=== PATIENT | female | born 1975 | race Caucasian/White ===

== ENCOUNTER 2017-12-08 17:28 | Emergency (ER) | payer BC ==
--- OUTSIDE RECORDS SUMMARY | 2017-12-08 17:29 | XMS REPORT | Clinical Summary ---
:1975 Author Organization [facility] Address [address] [place] [address] Care Team Providers Name Role Phone Asked, No Pcp Primary Care Provider Unavailable Allergies Active Allergy Reactions Severity Noted Date Comments Amoxicillin-Pot 11/27/2015 Clavulanate Avocado Oil 11/27/2015 Caffeine 11/27/2015 pt was dx psvt cannot have any medication containing this ingredients Cefuroxime Sodium 11/27/2015 Cetirizine Hcl 11/27/2015 Ciprofloxacin 11/27/2015 [place] 11/27/2015 Codeine Shortness Of Breath High 11/27/2015 Meperidine Shortness Of Breath High 11/27/2015 Doxycycline 11/27/2015 Erythromycin 11/27/2015 Kiwi 11/27/2015 Latex 11/27/2015 Melon 11/27/2015 Minocycline 11/27/2015 Ofloxacin 11/27/2015 Other Other (See Comments) 11/27/2015 antihistamines, pt was dx psvt cannot have any medication containing this ingredients Steroids pt was dx psvt cannot have any medication containing this ingredients Oxymetazoline Hcl 11/27/2015 pt was dx psvt cannot have any medication containing this medication Penicillins 11/27/2015 Amy Oil Anaphylaxis High 11/27/2015 Shellfish Containing Swelling 11/27/2015 Products Squash 11/27/2015 Sulfacetamide Sodium 11/27/2015 Sulfamethoxazole-Trimet 11/27/2015 hoprim Terfenadine 11/27/2015 Tree Nuts Anaphylaxis High 11/27/2015 Current Medications Prescription Sig. Disp. Refills Start Date End Date Status clonAZEPAM (KlonoPIN) 2 MG TK 1/ TO 1 T PO 0 11/15/2015 Active tablet ONCE A DAY Active Problems Problem Noted Date SVT (supraventricular tachycardia) 11/27/2015 Anxiety 11/27/2015 Depression 11/27/2015 Syncope 11/27/2015 Cardiac dysrhythmia, unspecified 11/27/2015 Family History Medical History Relation Name Comments Cancer Father Diabetes Father Heart disease Father Asthma Mother Heart disease Mother Relation Name Status Comments Father Mother Social History Tobacco Use Types Packs/Day Years Used Date Never Smoker Alcohol Use Drinks/Week oz/Week Comments No Sex Assigned at Date Recorded Not on file Last Filed Vital Signs Not on file Plan of Treatment Not on file Implants Implanted Type 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
[2017-12-08] MEDS ORDERED: NA CHLORIDE 0.9% 1,000 ML ONE (18:52)
[2017-12-08] MEDS ORDERED: ONDANSETRON 4 MG/2 ML VIAL ONE (18:52)
[2017-12-08] MEDS ORDERED: CYCLOBENZAPRINE 10 MG TAB ONE (18:52)
[2017-12-08] MEDS ORDERED: FENTANYL CITR 100 MCG/2 ML ONE ×2 (18:58→20:11)
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
[2017-12-08 21:57] LABS: Urine Blood NEGATIVE (NEG); Urine Glucose NEGATIVE (NEG); Urine Protein NEGATIVE (NEG); Urine Specific Gravity >1.030 (1.005-1.030)
[2017-12-08 21:57] LABS: Urine Blood NEGATIVE (NEG); Urine Glucose NEGATIVE (NEG); Urine Protein NEGATIVE (NEG); Urine Specific Gravity >1.030 (1.005-1.030)
[2017-12-08 21:58] LABS: Urine Specific Gravity >1.030 (1.005-1.030)
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
[2017-12-08 22:58] VITALS: TEMP 97.9
[2017-12-08 23:04] VITALS: BP 121/72; O2SAT 100
== END 2017-12-08 22:51 | disposition home or self-care (01) ==
LOC: ER 17:28
DX: S23.3XXA Sprain of ligaments of thoracic spine, initial encounter (principal); Y93.I9 Activity, other involving external motion; Y93.89 Activity, other specified; Y92.89 Other specified places as the place of occurrence of the external cause; Z88.0 Allergy status to penicillin; Z88.1 Allergy status to other antibiotic agents; Z88.2 Allergy status to sulfonamides; Z88.3 Allergy status to other anti-infective agents; Z88.5 Allergy status to narcotic agent; Z88.8 Allergy status to other drugs, medicaments and biological substances; F41.9 Anxiety disorder, unspecified; F32.9 Major depressive disorder, single episode, unspecified
CPT/HCPCS: 72128; 81003; 81025; 99284; J2405; J3010; J7030

== ENCOUNTER 2018-03-18 22:56 | Emergency (ER) | payer BC ==
--- OUTSIDE RECORDS SUMMARY | 2018-03-18 22:58 | XMS REPORT | Clinical Summary ---
:1975 Author Organization [facility] Address [address] [place] [address] Care Team Providers Name Role Phone Asked, No Pcp Primary Care Provider Unavailable Allergies Active Allergy Reactions Severity Noted Date Comments Amoxicillin-Pot 11/27/2015 Clavulanate Avocado Oil 11/27/2015 Caffeine 11/27/2015 pt was dx psvt cannot have any medication containing this ingredients Cantaloupe 03/01/2018 Cefuroxime Sodium 11/27/2015 Cetirizine Hcl 11/27/2015 Ciprofloxacin 11/27/2015 Arcadia 11/27/2015 Codeine Shortness Of Breath High 11/27/2015 Meperidine Shortness Of Breath High 11/27/2015 Doxycycline 11/27/2015 Erythromycin 11/27/2015 Kiwi 11/27/2015 Latex 11/27/2015 Melon 11/27/2015 Minocycline 11/27/2015 Ofloxacin 11/27/2015 Other Other (See Comments) 11/27/2015 antihistamines, pt was dx psvt cannot have any medication containing this ingredients Steroids pt was dx psvt cannot have any medication containing this ingredients CAT Scan contrast - "arm swells" Egg plant - "swells" Oxymetazoline Hcl 11/27/2015 pt was dx psvt cannot have any medication containing this medication Penicillins 11/27/2015 Amy Oil Anaphylaxis High 11/27/2015 Shellfish Containing Swelling 11/27/2015 Products Shellfish Derived 03/01/2018 Squash 11/27/2015 Sulfacetamide Sodium 11/27/2015 Sulfamethoxazole-Trimet 11/27/2015 hoprim Terfenadine 11/27/2015 Tree Nuts Anaphylaxis High 11/27/2015 Specially almonds Doxycycline Hyclate 03/01/2018 Respiratory distress Cetirizine Anaphylaxis High 03/01/2018 Current Medications Prescription Sig. Disp. Refills Start Date End Date Status clonAZEPAM (KlonoPIN) TAKE 1 TO 2 0 11/15/2015 Active 2 MG tablet TABLETS (2 MG - 4 MG) ORALLY DAILY traMADol (ULTRAM) 50 TAKE 1 TABLET 2 02/15/2018 Active mg tablet BY MOUTH EVERY 4 - 6 HOURS cholecalciferol, Take 1 tablet Active vitamin D3, (VITAMIN by mouth D3) 5,000 unit tablet daily. SUMAtriptan (IMITREX) TAKE 1 TABLET 5 02/16/2018 Active 50 MG tablet BY MOUTH 2 TIMES DAILY NEEDED FOR MIGRAINE diphenhydrAMINE Take 12.5 mg Active (BENADRYL) 25 mg by mouth capsule every 6 (six) hours as needed for itching or allergies. omeprazole (PriLOSEC) Take 40 mg by Active 40 MG capsule mouth 2 (two) times a day. metoprolol tartrate Take 25-100 Active (LOPRESSOR) 25 mg mg by mouth 2 tablet (two) times a day as needed (if PSVT is up). albuterol (PROAIR Inhale 2 Active HFA,PROVENTIL puffs every 6 HFA,VENTOLIN HFA) 90 (six) hours mcg/actuation inhaler as needed for wheezing (Asthma attack). docusate sodium Take 1 30 capsule 0 03/08/2018 Active (COLACE) 100 MG capsule (100 8 capsule mg total) by mouth 2 (two) times a day for 30 doses. methocarbamol Take 1 tablet 40 tablet 3 03/08/2018 Active (ROBAXIN-750) 750 MG (750 mg 8 tablet total) by mouth every 6 (six) hours for 40 doses. pantoprazole Take 1 tablet 15 tablet 0 03/08/2018 Active (PROTONIX) 20 MG EC (20 mg total) 8 tablet by mouth daily for 30 days. metoprolol succinate Take 100 mg Discontinued XL (TOPROL-XL) 100 mg by mouth 8 24 hr tablet daily. diazePAM (VALIUM) 5 Take 1 tablet 20 tablet 1 03/08/2018 MG tablet (5 mg total) 8 by mouth every 6 (six) hours as needed for anxiety or muscle spasms for up to 7 days. Active Problems Problem Noted Date Radiculopathy of cervical spine 03/05/2018 SVT (supraventricular tachycardia) (HCC) 11/27/2015 Anxiety 11/27/2015 Depression 11/27/2015 Syncope 11/27/2015 Cardiac dysrhythmia, unspecified 11/27/2015 Encounters Date Type Specialty Care Team Description 03/07/2018 Procedure Pass General Internal Medicine 03/07/2018 Procedure Pass General Internal Medicine 03/06/2018 Anesthesia Event General Surgery Lorelei Murray MD 03/06/2018 Procedure Pass General Surgery 03/06/2018 Surgery General Surgery Genaro Mayo ANTERIOR CERVICAL RE-EXPLORATION AND REMOVAL OF C5-C7 PLATE, REDO OF C6-C7 ANTERIOR CERVICAL DISCECTOMY AND FUSION 03/05/2018 - Hospital Encounter General Internal Genaro Mayo, Cervical spinal 03/09/2018 Medicine stenosis Rainer Hill MD 03/05/2018 Documentation General Surgery Stephie Hurtado RN 03/05/2018 Procedure Pass General Surgery 03/05/2018 Surgery General Surgery Genaro Mayo ANTERIOR CERVICAL RE EXPLORATION 03/01/2018 Anesthesia Event General Surgery José Miguel Mccarthy, ISABELLA 02/27/2018 Hospital Encounter Genaro Wright Cervical stenosis (uterine cervix) 02/27/2018 Transcribe Orders Genaro Wright, Cervical stenosis (uterine cervix) (Primary Dx) 02/01/2018 Hospital Encounter Genaro Wright, Spinal stenosis in cervical region 01/18/2018 Transcribe Orders Access Genaro Mayo, Spinal stenosis in cervical region (Primary Dx) after 03/17/2017 Family History Medical History Relation Name Comments Cancer Father Diabetes Father Heart disease Father Asthma Mother Heart disease Mother Relation Name Status Comments Father Mother Social History Tobacco Use Types Packs/Day Years Used Date Never Smoker Smokeless Tobacco: Never Used Alcohol Use Drinks/Week oz/Week Comments No Sex Assigned at Date Recorded Not on file Last Filed Vital Signs Vital Sign Reading Time Taken Blood Pressure 128/70 03/09/2018 7:08 AM CDT Pulse 70 03/09/2018 10:21 AM CDT Temperature 36.6 C (97.9 F) 03/09/2018 7:08 AM CDT Respiratory Rate 18 03/09/2018 10:21 AM CDT Oxygen Saturation 99% 03/09/2018 10:21 AM CDT Inhaled Oxygen Concentration - - Weight 88.6 kg (195 lb 6 oz) 03/05/2018 11:37 AM CDT Height 172.7 cm (5' 8") 03/05/2018 11:37 AM CDT Body Mass Index 29.71 03/05/2018 11:37 AM CDT Plan of Treatment Health Maintenance Due Date Last Done Comments CERVICAL CANCER SCREENING 1996 INFLUENZA VACCINE 12/27/2017 Implants Implanted Type Area Account Analyst Device Expiration Model / Serial Identifier Date / Lot System Reveal Linq W/Monitors - [id number] Cardiovascula [employer] 2016 LINQSYS / Implanted: Qty: 1 on 11/27/2015 by Alfredo Hays Jr., MD r Implants CARDIAC RHYTHM / DISEASE MGMT Spacer Convexity Tricrtcl 9mm - [id number] Human Tissue Anterior: MUSCULOSKELETAL 03/14/2020 [id number] / Implanted: Qty: 1 on 03/06/2018 by Genaro Mayo MD Implants Spine [employer] [facility] [facility] [id number] Procedures Procedure Name Priority Date/Time Associated Comments Diagnosis ESTIMATED GFR Routine 03/09/2018 6:00 Results for this AM CDT procedure are in the results section. CBC HEMOGRAM Routine 03/09/2018 6:00 Results for this AM CDT procedure are in the results section. BASIC METABOLIC PANEL Routine 03/09/2018 6:00 Results for this AM CDT procedure are in the results section. FL MODIFIED BARIUM Routine 03/08/2018 11:14 Results for this SWALLOW AM CDT procedure are in the results section. ESTIMATED GFR STAT 03/08/2018 7:42 Results for this AM CDT procedure are in the results section. BASIC METABOLIC PANEL STAT 03/08/2018 7:42 Results for this AM CDT procedure are in the results section. ESTIMATED GFR Routine 03/08/2018 5:00 Results for this AM CDT procedure are in the results section. CBC HEMOGRAM Routine 03/08/2018 5:00 Results for this AM CDT procedure are in the results section. BASIC METABOLIC PANEL Routine 03/08/2018 5:00 Results for this AM CDT procedure are in the results section. CT LUMBAR SPINE WO STAT 03/07/2018 7:04 Results for this CONTRAST PM CDT procedure are in the results section. MRI LUMBAR SPINE WO Routine 03/07/2018 2:14 Results for this CONTRAST PM CDT procedure are in the results section. MRI THORACIC SPINE WO Routine 03/07/2018 1:43 Results for this CONTRAST PM CDT procedure are in the results section. ESTIMATED GFR Routine 03/07/2018 3:50 Results for this AM CDT procedure are in the results section. CBC HEMOGRAM Routine 03/07/2018 3:50 Results for this AM CDT procedure are in the results section. BASIC METABOLIC PANEL Routine 03/07/2018 3:50 Results for this AM CDT procedure are in the results section. CT CERVICAL SPINE WO STAT 03/06/2018 4:45 Results for this CONTRAST PM CDT procedure are in the results section. OR FL > 1 HOUR Routine 03/06/2018 12:28 Results for this PM CDT procedure are in the results section. NJ AN ELECTIVE Routine 03/06/2018 10:28 ENDOTRACHEAL AIRWAY AM CDT Procedure Note - Jerardo Camacho CRNA - 03/06/2018 10:28 AM CDT Airway Date/Time: 03/06/2018 9:51 AM Performed by: JERARDO CAMACHO Authorized by: LORELEI MURRAY Location: OR Urgency: Elective Difficult Airway: No Anesthesiologist: LORELEI MURRAY Resident/FILTER TIP INSPECTOR/AA: JERARDO CAMACHO Performed by: resident/FILTER TIP INSPECTOR/AA Preoxygenated with 100% O2: Yes C-spine Precautions Maintained Throughout: Yes Mask Ventilation: Easy mask Final Airway Type: Endotracheal airway Final Endotracheal Airway: ETT Cuffed: Yes Technique Used: Video laryngoscopy Devices/Methods Used in Placement: Intubating stylet Insertion Site: Oral Blade Type: Howard Laryngoscope Blade/Videolaryngoscope Blade Size: 3 ETT Size (mm): 7.0 Cuff at minimum occlusion pressure: Yes Measured from: Lips ETT to Lips (cm): 22 Placement Verified by: CO2 detection, direct visualization and equal breath sounds Laryngoscopic view: Grade I - full view of glottis Rapid Sequence Induction (RSI): No Modified RSI: No Number of Attempts at Approach: 1 Used a glidescope #[address] Junior request. Atraumatic intubation. All oral structures intact and unchanged. PROTHROMBIN TIME WITH INR Routine 03/06/2018 4:40 AM CDT MAGNESIUM LEVEL Routine 03/06/2018 4:40 AM CDT ESTIMATED GFR Routine 03/05/2018 8:49 PM CDT COMPREHENSIVE METABOLIC Routine 03/05/2018 8:49 PM CDT Results for this PANEL procedure are in the results section. OR FL > 1 HOUR Routine 03/05/2018 5:10 PM CDT NJ AN ELECTIVE ENDOTRACHEAL Routine 03/05/2018 2:40 PM CDT AIRWAY Procedure Note - Nguyễn Hernandez Jr., FILTER TIP INSPECTOR - 03/05/2018 2:40 PM CDT Airway Date/Time: 03/05/2018 2:13 PM Performed by: NGUYỄN HERNANDEZ JR. Authorized by: LORELEI MURRAY Location: OR Urgency: Elective Difficult Airway: No Anesthesiologist: LORELEI MURRAY Resident/FILTER TIP INSPECTOR/AA: NGUYỄN HERNANDEZ JR. Performed by: resident/FILTER TIP INSPECTOR/AA Preoxygenated with 100% O2: Yes C-spine Precautions Maintained Throughout: Yes Mask Ventilation: Easy mask Final Airway Type: Endotracheal airway Final Endotracheal Airway: ETT Cuffed: Yes Technique Used: Video laryngoscopy Devices/Methods Used in Placement: Intubating stylet Insertion Site: Oral Laryngoscope Blade/Videolaryngoscope Blade Size: 3 ETT Size (mm): 7.0 (EMG tube) Cuff at minimum occlusion pressure: Yes Measured from: Lips ETT to Lips (cm): 21 Placement Verified by: CO2 detection, direct visualization and equal breath sounds Laryngoscopic view: Grade I - full view of glottis Rapid Sequence Induction (RSI): No Modified RSI: No Number of Attempts at Approach: 1 Suctioned; Atraumatic; +ETCO2 URINALYSIS SCREEN AND Timed 03/05/2018 2:20 PM Cervical spinal Results for this MICROSCOPY, WITH CDT stenosis procedure are in REFLEX TO CULTURE the results section. URINE CULTURE Timed 03/05/2018 2:20 PM Results for this CDT procedure are in the results section. TYPE AND SCREEN STAT 03/05/2018 12:20 PM Results for this CDT procedure are in the results section. POC GLUCOSE Routine 03/05/2018 12:10 PM Results for this CDT procedure are in the results section. XR CERVICAL SPINE AP Routine 02/27/2018 2:10 PM Cervical stenosis Results for this LATERAL FLEXION AND CDT (uterine cervix) procedure are in EXTENSION the results section. CT CERVICAL SPINE WO Routine 02/01/2018 1:28 PM Spinal stenosis in Results for this CONTRAST CDT cervical region procedure are in the results section. after 03/17/2017 Results Estimated GFR (03/09/2018 6:00 AM)Only the most recent of5 resultswithin the time period is included. Estimated GFR >=90 mL/min/1.73 m2 [facility] DEPARTMENT OF Comment: PATHOLOGY AND GENOMIC CatergoryUnitsInterpretation MEDICINE G1 >=90 Normal or high G2 60-89Mildly decreased [id number] to moderately decreased [id number] to severely decreased G4 15-29Severely decreased G5 <15Kidney failure The eGFR was calculated using the Chronic Kidney Disease Epidemiology Collaboration (CKD-EPI) equation. Interpretation is based on recommendations of the National Kidney Foundation-Kidney Disease Outcomes Quality Initiative (NKF-KDOQI) published in 2014. Specimen Plasma specimen Performing Organization Address City/State/Zipcode Phone Number [facility] DEPARTMENT OF PATHOLOGY [address] [place] [address] AND [employer] [facility] CBC hemogram (03/09/2018 6:00 AM)Only the most recent of3 resultswithin the time period is included. WBC 11.8 (H) 4.5 - 11.0 k/uL [facility] DEPARTMENT OF PATHOLOGY AND GENOMIC MEDICINE RBC 4.18 (L) 4.20 - 5.50 m/uL [facility] DEPARTMENT OF PATHOLOGY AND GENOMIC MEDICINE HGB 12.2 12.0 - 16.0 g/dL [facility] DEPARTMENT OF PATHOLOGY AND GENOMIC MEDICINE HCT 35.8 (L) 37.0 - 47.0 % [facility] DEPARTMENT OF PATHOLOGY AND GENOMIC MEDICINE MCV 85.6 82.0 - 100.0 fL [facility] DEPARTMENT OF PATHOLOGY AND GENOMIC MEDICINE MCH 29.2 27.0 - 34.0 pg [facility] DEPARTMENT OF PATHOLOGY AND GENOMIC MEDICINE MCHC 34.1 31.0 - 37.0 g/dL [facility] DEPARTMENT OF PATHOLOGY AND GENOMIC MEDICINE RDW - SD 37.3 37.0 - 55.0 fL [facility] DEPARTMENT OF PATHOLOGY AND GENOMIC MEDICINE MPV 10.7 6.9 - 11.0 fL [facility] DEPARTMENT OF PATHOLOGY AND GENOMIC MEDICINE Platelet count 256 150 - 400 K/uL [facility] DEPARTMENT OF PATHOLOGY AND [employer] [facility] Nucleated RBC 0.00 /100 WBC [facility] DEPARTMENT OF PATHOLOGY AND [employer] [facility] Specimen Blood Performing Organization Address City/[facility]/Zipcode Phone Number [facility] OF PATHOLOGY [id number] [place] [address] AND [employer] [facility] Basic metabolic panel (03/09/2018 6:00 AM)Only the most recent of4 resultswithin the time period is included. Sodium 140 135 - 148 mEq/L [facility] DEPARTMENT OF PATHOLOGY AND [employer] [facility] Potassium 3.8 3.5 - 5.0 mEq/L [facility] DEPARTMENT OF PATHOLOGY AND [employer] [facility] Chloride 103 98 - 112 mEq/L [facility] DEPARTMENT OF PATHOLOGY AND [employer] [facility] CO2 25 24 - 31 mEq/L [facility] DEPARTMENT OF PATHOLOGY AND [employer] [facility] Anion gap 12@ANIO 7 - 15 mEq/L [facility] DEPARTMENT OF PATHOLOGY AND [employer] [facility] BUN 14 6 - 20 mg/dL [facility] DEPARTMENT OF PATHOLOGY AND [employer] [facility] Creatinine 0.63 0.50 - 0.90 mg/dL [facility] DEPARTMENT OF PATHOLOGY AND [employer] [facility] Glucose 130 (H) 65 - 99 mg/dL [facility] DEPARTMENT OF PATHOLOGY AND [employer] [facility] Calcium 8.6 8.3 - 10.2 mg/dL [facility] DEPARTMENT OF PATHOLOGY AND [employer] [facility] Specimen Plasma specimen Performing Organization Address City/[facility] Phone Number [facility] PATHOLOGY [address] [place] [address] AND [employer] [facility] [place] Modified Barium Swallow (03/08/2018 11:14 AM) Narrative Performed At [facility] Examination:FL MODIFIED BARIUM SWALLOW Clinical history:"Aspirationknown or suspected" Comparison:There are no prior studies for comparison. Reference air kerma:12.27 mGy. Technique: The patient swallowed materials of varying consistencies mixed with barium contrast under real-time fluoroscopic visualization. Specifically, the patient consecutively swallowed material of thin consistency, then pudding consistency, then cracker with pudding consistency. All swallowing was without evidence of laryngeal penetration or of aspiration. Noted is the absence of normal epiglottic inversion. For further details, please refer to speech pathology records. IMPRESSION: All swallowing was without evidence of laryngeal penetration or of aspiration. Noted is the absence of normal epiglottic inversion. Thank you for allowing us to participate in the care of your patient. [id number] Procedure Note Hm Interface, Radiology Results Incoming - 03/08/2018 11:30 AM CDT Examination: FL MODIFIED BARIUM SWALLOW Clinical history: "Aspiration known or suspected" Comparison: There are no prior studies for comparison. Reference air kerma: 12.27 mGy. Technique: The patient swallowed materials of varying consistencies mixed with barium contrast under real-time fluoroscopic visualization. Specifically, the patient consecutively swallowed material of thin consistency , then pudding consistency, then cracker with pudding consistency. All swallowing was without evidence of laryngeal penetration or of aspiration. Noted is the absence of normal epiglottic inversion. For further details, please refer to speech pathology records. IMPRESSION: All swallowing was without evidence of laryngeal penetration or of aspiration. Noted is the absence of normal epiglottic inversion. Thank you for allowing us to participate in the care of your patient. [facility]-[id number] Performing Organization Address City/State/Zipcode Phone Number [facility] [address] [place] [address] CT Lumbar Spine Wo Contrast (03/07/2018 7:04 PM) Narrative Performed At EXAMINATION: CT LUMBAR SPINE WO CONTRAST [facility] CLINICAL HISTORY: L S-spine fusionfollow up, Left leg weakness COMPARISON:Lumbar MRI 03/07/2018 TECHNIQUE: Noncontrast enhanced imaging through the lumbar spine was performed with coronal and sagittal reconstructed images. CT scans are performed using radiation dose reduction techniques (iterative reconstruction and/or automated exposure control). Technical factors are evaluated and adjusted to ensure appropriate moderation of exposure. Automated dose management technology is applied to adjust radiation exposure while achieving a diagnostic quality image. FINDINGS: There are surgical changes related to interbody fusion at L4-L5, with bony incorporation across the fusion. In addition, there are surgical changes related to a right L4-L5 facetectomy and foraminotomy. There are also surgical changes related to left L4-L5 facetectomy, and presumably a prior foraminotomy. In the region of the left L4-L5 foramen, there appears to be ill-defined heterotopic ossification which fuses the inferior aspect of the right L4 vertebral body with the L5 posterior elements/pars interarticularis.This appears to result in impingement of both the exiting L4 nerve root as well as the descending L5 nerve root in the lateral recess. There are no acute fractures. No acute soft tissue abnormality. There are degenerative changes most conspicuously present at L5-S1 resulting in mild bilateral foraminal stenosis. IMPRESSION: Surgical changes as detailed above. 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 This results in left L4-L5 foraminal stenosis and narrowing of the left lateral recess, with impingement of both the exiting L4 nerve roots and the descending L5 nerve root in the lateral recess. Correlate for left L4 and/or L5 radiculopathy. [facility]-[id number] Procedure Note Hm [facility], Radiology Results Incoming - 03/07/2018 7:48 PM CDT EXAMINATION: CT LUMBAR SPINE WO CONTRAST CLINICAL HISTORY: L S-spine fusion follow up, Left leg weakness COMPARISON: Lumbar MRI 03/07/2018 TECHNIQUE: Noncontrast enhanced imaging through the lumbar spine was performed with coronal and sagittal reconstructed images. CT scans are performed using radiation dose reduction techniques (iterative reconstruction and/or automated exposure control). Technical factors are evaluated and adjusted to ensure appropriate moderation of exposure. Automated dose management technology is applied to adjust radiation exposure while achieving a diagnostic quality image. FINDINGS: There are surgical changes related to interbody fusion at L4-L5, with bony incorporation across the fusion. In addition, there are surgical changes related to a right L4-L5 facetectomy and foraminotomy. There are also surgical changes related to left L4-L5 facetectomy, and presumably a prior foraminotomy. In the region of the left L4-L5 foramen, there appears to be ill-defined heterotopic ossification which fuses the inferior aspect of the right L4 vertebral body with the L5 posterior elements/pars interarticularis. This appears to result in impingement of both the exiting L4 nerve root as well as the descending L5 nerve root in the lateral recess. There are no acute fractures. No acute soft tissue abnormality. There are degenerative changes most conspicuously present at L5-S1 resulting in mild bilateral foraminal stenosis. IMPRESSION: Surgical changes as detailed above. 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 This results in left L4-L5 foraminal stenosis and narrowing of the left lateral recess, with impingement of both the exiting L4 nerve roots and the descending L5 nerve root in the lateral recess. Correlate for left L4 and/or L5 radiculopathy. [facility]-[id number] Performing Organization Address City/State/Zipcode Phone Number [facility] [address] [place] [address] MRI Lumbar Spine Wo Contrast (03/07/2018 2:14 PM) Narrative Performed At EXAMINATION: MRI LUMBAR SPINE WO CONTRAST [facility] CLINICAL HISTORY: LLE Weakness Technique: Routine unenhanced MRI of the lumbar spine. Comparison: None. Findings: For the purposes of this dictation, the last well-defined interspace is called L5-S1. There is anatomic alignment of the lumbar spine.Mild levocurvature of the lumbar spine. Lumbar vertebral body heights are maintained. There is artifact from L4-L5 disc spacer which appears to protrude into the thecal sac and sagittal sequence; however likely artifactual as not correlated on axial sequence. T12 superior endplate Schmorl's node. L3-L4 disc desiccation. L1-2: No significant canal stenosis or neural foraminal narrowing. L2-3: Mild disc bulge. No significant canal stenosis. Mild facet arthropathy. No significant neural foraminal narrowing. L3-4: Disc bulge, mild facet arthropathy and ligamentum flavum thickening, mild canal narrowing. Mild right neural foraminal narrowing. L4-5: Laminectomy. Central canal is decompressed. Right foramen is patent. Left neural foramina is obscured secondary to artifact. L5-S1: Mild disc bulge. Bilateral facet arthropathy. Bilateral subarticular zone stenosis. No central spinal stenosis. No significant neural foraminal narrowing. Normal appearance and position of the terminal spinal cord. Impression: Postsurgical changes at L4-L5 with interbody graft and laminectomy. No significant central lumbar spinal stenosis. Bilateral subarticular zone stenosis at L5-S1. The left neural foramina at L4-L5 is obscured secondary to artifact however there may be neural foraminal narrowing, consider correlation with lumbar CT and/or myelogram. [id number] Procedure Note Hm Interface, Radiology Results Incoming - 03/07/2018 4:02 PM CDT EXAMINATION: MRI LUMBAR SPINE WO CONTRAST CLINICAL HISTORY: LLE Weakness Technique: Routine unenhanced MRI of the lumbar spine. Comparison: None. Findings: For the purposes of this dictation, the last well-defined interspace is called L5-S1. There is anatomic alignment of the lumbar spine. Mild levocurvature of the lumbar spine. Lumbar vertebral body heights are maintained. There is artifact from L4-L5 disc spacer which appears to protrude into the thecal sac and sagittal sequence ; however likely artifactual as not correlated on axial sequence. T12 superior endplate Schmorl's node. L3-L4 disc desiccation. L1-2: No significant canal stenosis or neural foraminal narrowing. L2-3: Mild disc bulge. No significant canal stenosis. Mild facet arthropathy. No significant neural foraminal narrowing. L3-4: Disc bulge, mild facet arthropathy and ligamentum flavum thickening, mild canal narrowing. Mild right neural foraminal narrowing. L4-5: Laminectomy. Central canal is decompressed. Right foramen is patent. Left neural foramina is obscured secondary to artifact. L5-S1: Mild disc bulge. Bilateral facet arthropathy. Bilateral subarticular zone stenosis. No central spinal stenosis. No significant neural foraminal narrowing. Normal appearance and position of the terminal spinal cord. Impression: Postsurgical changes at L4-L5 with interbody graft and laminectomy. No significant central lumbar spinal stenosis. Bilateral subarticular zone stenosis at L5-S1. The left neural foramina at L4-L5 is obscured secondary to artifact however there may be neural foraminal narrowing, consider correlation with lumbar CT and/or myelogram. [id number] Performing Organization Address City/State/Zipcode Phone Number [facility] [address] [place] [address] MRI Thoracic Spine Wo Contrast (03/07/2018 1:43 PM) Narrative Performed At EXAMINATION:MRI THORACIC SPINE WO CONTRAST [facility] CLINICAL HISTORY:LLE Weakness COMPARISON:None. Findings: Exaggerated kyphosis of thoracic spine. Multilevel posterior osteophyte disc complexes most prominent at T11-T12 where there is mild canal narrowing. Facet arthropathy and osteophytosis causes mild left T10-11 foraminal narrowing. No suspicious focal bone marrow lesions. Multilevel endplate degenerative changes worst at T11-12. No acute compression fractures. Visualized spinal cord is normal in size and signal intensity. IMPRESSION: Multilevel degenerative changes most prominent at T10-11 and T11-12. No moderate/severe canal or foraminal narrowing. [id number] Procedure Note Interface, Radiology Results Incoming - 03/07/2018 3:03 PM CDT EXAMINATION: MRI THORACIC SPINE WO CONTRAST CLINICAL HISTORY: LLE Weakness COMPARISON: None. Findings: Exaggerated kyphosis of thoracic spine. Multilevel posterior osteophyte disc complexes most prominent at T11-T12 where there is mild canal narrowing. Facet arthropathy and osteophytosis causes mild left T10-11 foraminal narrowing. No suspicious focal bone marrow lesions. Multilevel endplate degenerative changes worst at T11-12. No acute compression fractures. Visualized spinal cord is normal in size and signal intensity. IMPRESSION: Multilevel degenerative changes most prominent at T10-11 and T11-12. No moderate/severe canal or foraminal narrowing. [id number] Performing Organization Address City/State/Zipcode Phone Number [facility] [address] [place] [address] CT Cervical Spine Wo Contrast (03/06/2018 4:45 PM)Only the most recent of2 resultswithin the time period is included. Narrative Performed At EXAMINATION: CT CERVICAL SPINE WO CONTRAST [facility] CLINICAL HISTORY: C-spine fusionfollow up COMPARISON:CT C-spine 02/01/2018. TECHNIQUE: Axial noncontrast enhanced images of the cervical spine were obtained with coronal and sagittal reconstructed algorithms. CT imaging was performed with iterative reconstruction technique and/or automated exposure control to reduce radiation dose. FINDINGS: Interval postsurgical changes compatible with removal of anterior spinal instrumentation C5-C7 with replacement of C6-C7 intervertebral disc spacer and resection of the posterior endplate osteophytes when compared with the prior CT from 02/01/2018. Surgical placement of intervertebral disc spacer and anterior spinal instrumentation C6-C7. Surgical hardware is intact, with solid osseous integration. The alignment of the cervical spine is within normal limits. No subluxation. No fractures identified. The vertebral body heights are preserved. No suspicious osseous lesion. No prevertebral edema or neck mass identified. Subcutaneous emphysema seen tracking along the right anterior neck soft tissues. No surgical site collections or hematomas identified. No cervical lymphadenopathy. Thyroid gland is normal in appearance. Mild to moderate post surgical prevertebral edema is noted. Axial images through the disc spaces demonstrate the following: C1-C2: No significant spinal canal stenosis. C2-C3: No significant posterior disc disease, spinal canal, subarticular zone, or neural foraminal stenosis. C3-C4: Moderate intervertebral disc height loss with cervical ventral disc bulge and tiny marginal endplate osteophytes which indent the ventral thecal sac and results in mild to moderate central canal and bilateral subarticular zone stenosis. There is also mild to moderate left neural foraminal narrowing. Right neural foramen is patent. C4-C5: Small central disc protrusion which indents the ventral thecal sac and results in mild central canal stenosis, image 76 of series 5. Neural foramina are patent bilaterally. C5-C6: Disc is surgically absent. No significant residual spinal canal or neural foraminal stenosis. C6-C7: Disc is surgically absent. No significant residual spinal canal or neural foraminal stenosis. C7-T1: Mild intervertebral disc height loss with circumferential disc bulge, however no significant spinal canal or neural foraminal stenosis identified within the limitations of adjacent streak artifact. IMPRESSION: Interval postsurgical changes compatible with revision of anterior spinal hardware including resection of C6-C7 posterior endplate osteophytes when compared to the prior CT from 02/01/2018, with expected postoperative findings as detailed above. [id number] Procedure Note Interface, Radiology Results Incoming - 03/06/2018 4:58 PM CDT EXAMINATION: CT CERVICAL SPINE WO CONTRAST CLINICAL HISTORY: C-spine fusion follow up COMPARISON: CT C-spine 02/01/2018. TECHNIQUE: Axial noncontrast enhanced images of the cervical spine were obtained with coronal and sagittal reconstructed algorithms. CT imaging was performed with iterative reconstruction technique and/or automated exposure control to reduce radiation dose. FINDINGS: Interval postsurgical changes compatible with removal of anterior spinal instrumentation C5-C7 with replacement of C6-C7 intervertebral disc spacer and resection of the posterior endplate osteophytes when compared with the prior CT from 02/01/2018. Surgical placement of intervertebral disc spacer and anterior spinal instrumentation C6-C7. Surgical hardware is intact, with solid osseous integration. The alignment of the cervical spine is within normal limits. No subluxation. No fractures identified. The vertebral body heights are preserved. No suspicious osseous lesion. No prevertebral edema or neck mass identified. Subcutaneous emphysema seen tracking along the right anterior neck soft tissues. No surgical site collections or hematomas identified. No cervical lymphadenopathy. Thyroid gland is normal in appearance. Mild to moderate post surgical prevertebral edema is noted. Axial images through the disc spaces demonstrate the following: C1-C2: No significant spinal canal stenosis. C2-C3: No significant posterior disc disease, spinal canal, subarticular zone, or neural foraminal stenosis. C3-C4: Moderate intervertebral disc height loss with cervical ventral disc bulge and tiny marginal endplate osteophytes which indent the ventral thecal sac and results in mild to moderate central canal and bilateral subarticular zone stenosis. There is also mild to moderate left neural foraminal narrowing. Right neural foramen is patent. C4-C5: Small central disc protrusion which indents the ventral thecal sac and results in mild central canal stenosis, image 76 of series 5. Neural foramina are patent bilaterally. C5-C6: Disc is surgically absent. No significant residual spinal canal or neural foraminal stenosis. C6-C7: Disc is surgically absent. No significant residual spinal canal or neural foraminal stenosis. C7-T1: Mild intervertebral disc height loss with circumferential disc bulge, however no significant spinal canal or neural foraminal stenosis identified within the limitations of adjacent streak artifact. IMPRESSION: Interval postsurgical changes compatible with revision of anterior spinal hardware including resection of C6-C7 posterior endplate osteophytes when compared to the prior CT from 02/01/2018, with expected postoperative findings as detailed above. [id number] Performing Organization Address City/State/Zipcode Phone Number [facility] [address] [place] [address] OR [place] > I Hour (03/06/2018 12:28 PM)Only the most recent of2 resultswithin the time period is included. Narrative Performed At EXAMINATION:OR [place] 1 HOUR [facility] CLINICAL HISTORY: None provided. IMPRESSION: 1. Fluoroscopy was provided in the operating. I was not present during the procedure. 2. Please refer to the operative report for findings. 3. Total Dose:5 fluoroscopic images. 6.4 seconds of fluoroscopy time. Procedure Note Interface, Radiology Results Incoming - 03/06/2018 12:47 PM CDT EXAMINATION: OR [place] 1 HOUR CLINICAL HISTORY: None provided. IMPRESSION: 1. Fluoroscopy was provided in the operating. I was not present during the procedure. 2. Please refer to the operative report for findings. 3. Total Dose: 5 fluoroscopic images. 6.4 seconds of fluoroscopy time. Performing Organization Address City/State/Zipcode Phone Number [facility] [address] [place] [address] Prothrombin time with INR (03/06/2018 4:40 AM) Prothrombin time 13.8 12.0 - 15.0 sec [facility] DEPARTMENT OF PATHOLOGY AND GENOMIC MEDICINE INR 1.1 [facility] DEPARTMENT OF Comment: PATHOLOGY AND GENOMIC The International Normalized Ratio (INR) is a therapeutic MEDICINE monitoring tool for patients who are stable on oral anticoagulant therapy. An INR of 2.0-3.0 is suggested for deep vein thrombosis/pulmonary embolism. Specimen Blood Performing Organization Address [facility] Phone Number [facility] DEPARTMENT OF PATHOLOGY [id number] [place] [address] AND [facility] Magnesium level (03/06/2018 4:40 AM) Magnesium 1.8 1.6 - 2.6 mg/dL [facility] DEPARTMENT OF PATHOLOGY AND GENOMIC MEDICINE Specimen Plasma specimen Performing Organization Address [facility] Phone Number [facility] DEPARTMENT OF PATHOLOGY [id number] [place] [address] AND [employer] [facility] Comprehensive metabolic panel (03/05/2018 8:49 PM) Sodium 133 (L) 135 - 148 mEq/L [facility] DEPARTMENT OF PATHOLOGY AND GENOMIC MEDICINE Potassium 4.2 3.5 - 5.0 mEq/L [facility] DEPARTMENT OF PATHOLOGY AND GENOMIC MEDICINE Chloride 102 98 - 112 mEq/L [facility] DEPARTMENT OF PATHOLOGY AND GENOMIC MEDICINE CO2 18 (L) 24 - 31 mEq/L [facility] DEPARTMENT OF PATHOLOGY AND GENOMIC MEDICINE Anion gap 13@ANIO 7 - 15 mEq/L [facility] DEPARTMENT OF PATHOLOGY AND GENOMIC MEDICINE BUN 11 6 - 20 mg/dL [facility] DEPARTMENT OF PATHOLOGY AND GENOMIC MEDICINE Creatinine 0.71 0.50 - 0.90 mg/dL [facility] DEPARTMENT OF PATHOLOGY AND GENOMIC MEDICINE Glucose 124 (H) 65 - 99 mg/dL [facility] DEPARTMENT OF PATHOLOGY AND GENOMIC MEDICINE Calcium 8.5 8.3 - 10.2 mg/dL [facility] DEPARTMENT OF PATHOLOGY AND GENOMIC MEDICINE Protein 6.7 6.3 - 8.3 g/dL [facility] DEPARTMENT OF PATHOLOGY AND GENOMIC MEDICINE Albumin 3.6 3.5 - 5.0 g/dL [facility] DEPARTMENT OF PATHOLOGY AND GENOMIC MEDICINE A/G ratio 1.2 0.7 - 3.8 [facility] DEPARTMENT OF PATHOLOGY AND GENOMIC MEDICINE Alkaline phosphatase 53 35 - 104 U/L [facility] DEPARTMENT OF PATHOLOGY AND GENOMIC MEDICINE AST 25 10 - 35 U/L [facility] DEPARTMENT OF PATHOLOGY AND GENOMIC MEDICINE ALT 20 5 - 50 U/L [facility] DEPARTMENT OF PATHOLOGY AND GENOMIC MEDICINE Total bilirubin 0.3 0.2 - 1.2 mg/dL [facility] DEPARTMENT OF PATHOLOGY AND GENOMIC MEDICINE Specimen Plasma specimen Performing Organization Address City/State/Zipcode Phone Number [facility] DEPARTMENT OF PATHOLOGY [address] [place] [address] AND [employer] [facility] Urinalysis screen and microscopy, with reflex to culture (03/05/2018 2:20 PM) Specimen site Catheterized [facility] DEPARTMENT OF PATHOLOGY AND GENOMIC MEDICINE Color, UA Yellow [facility] DEPARTMENT OF PATHOLOGY AND GENOMIC MEDICINE Appearance, UA Clear [facility] DEPARTMENT OF PATHOLOGY AND GENOMIC MEDICINE Specific gravity, UA 1.014 1.001 - 1.030 [facility] DEPARTMENT OF PATHOLOGY AND GENOMIC MEDICINE pH, UA 6.0 5.0 - 9.0 [facility] DEPARTMENT OF PATHOLOGY AND GENOMIC MEDICINE Protein, UA Negative Negative [facility] DEPARTMENT OF PATHOLOGY AND GENOMIC MEDICINE Glucose, UA Negative Negative [facility] DEPARTMENT OF PATHOLOGY AND GENOMIC MEDICINE Ketones, UA Trace (A) Negative [facility] DEPARTMENT OF PATHOLOGY AND GENOMIC MEDICINE Bilirubin, UA Negative Negative [facility] DEPARTMENT OF PATHOLOGY AND GENOMIC MEDICINE Blood, UA Negative Negative [facility] DEPARTMENT OF PATHOLOGY AND GENOMIC MEDICINE Nitrite, UA Negative Negative [facility] DEPARTMENT OF PATHOLOGY AND GENOMIC MEDICINE Urobilinogen, UA <2.0 <2.0 E.U./dL [facility] DEPARTMENT OF PATHOLOGY AND GENOMIC MEDICINE Leukocyte esterase, UA Negative Negative [facility] DEPARTMENT OF PATHOLOGY AND GENOMIC MEDICINE Epithelial cells, UA 2 /HPF [facility] DEPARTMENT OF PATHOLOGY AND GENOMIC MEDICINE Round epithelial cells, UA <1 0 - 5 /HPF [facility] DEPARTMENT OF PATHOLOGY AND GENOMIC MEDICINE WBC, UA <1 0 - 4 /HPF [facility] DEPARTMENT OF PATHOLOGY AND GENOMIC MEDICINE RBC, UA <1 0 - 5 /HPF [facility] DEPARTMENT OF PATHOLOGY AND GENOMIC MEDICINE Bacteria, UA None seen None seen [facility] DEPARTMENT OF PATHOLOGY AND GENOMIC MEDICINE Yeast, UA None seen [facility] DEPARTMENT OF PATHOLOGY AND GENOMIC MEDICINE Yeast with pseudohyphae, UA None seen [facility] DEPARTMENT OF PATHOLOGY AND GENOMIC MEDICINE Specimen Urine - Urine, catheter Performing Organization Address [facility]/Zipcode Phone Number [facility] DEPARTMENT OF PATHOLOGY [address] [place] [address]. [place] [phone] AND [employer] MEDICINE Urine culture (03/05/2018 2:20 PM) Urine culture SEE COMMENTComment: Bacteriuria [facility] DEPARTMENT OF PATHOLOGY screen negative. AND GENOMIC MEDICINE Performing Organization Address [facility] Phone Number [facility] DEPARTMENT OF PATHOLOGY [address] [place] [address]. [place], [place] [phone] AND GENOMIC MEDICINE Type and screen (03/05/2018 12:20 PM) ABO grouping A [facility] DEPARTMENT OF PATHOLOGY AND GENOMIC MEDICINE Rh type POS [facility] DEPARTMENT OF PATHOLOGY AND GENOMIC MEDICINE Antibody screen (gel) NEG [facility] DEPARTMENT OF PATHOLOGY AND GENOMIC MEDICINE Specimen Blood Performing Organization Address [facility]/Zipcode Phone Number [facility] DEPARTMENT OF PATHOLOGY [address] [place] [address]. [place] [phone] AND [employer] MEDICINE POC glucose (03/05/2018 12:10 PM) POC glucose 79 65 - 99 mg/dL [facility] DEPARTMENT OF PATHOLOGY AND Comment: [employer] MEDICINE Meter ID: [id number] Transition Specialist: Arron Nicole Performing Organization Address [facility] Phone Number [facility] DEPARTMENT OF PATHOLOGY [address] [place] [address]. 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 Anterior plate and screws are noted at C5-C7 with interbody grafts in place. Prevertebral soft tissues are within normal limits. Facet joints are intact. Flexion-extension imaging shows 1 to 2 mm interbody movement at C3-4 and C4-5. No significant abnormality identified. There is no scoliosis. Apices are clear. 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 Anterior plate and screws are noted at C5-C7 with interbody grafts in place. Prevertebral soft tissues are within normal limits. Facet joints are intact. Flexion-extension imaging shows 1 to 2 mm interbody movement at C3-4 and C4-5. No significant abnormality identified. There is no scoliosis. Apices are clear. [id number] Performing Organization Address City/State/Zipcode Phone Number [facility] [address] [place] [address] after 03/17/2017 Insurance Payer Benefit Plan / Group Subscriber ID Type Phone Address BCBS BCBS CHOICE PPO/[employer] PPO xxxxxxxxxxxx PPO y [phone] [id number]
[2018-03-18] MEDS ORDERED: NA CHLORIDE 0.9% 1,000 ML ONE (23:30)
[2018-03-18 23:38] LABS: Absolute Monocytes 0.7 K/uL (0.1-1.3); Absolute Neutrophil 6.8 K/uL (1.8-8.0); Basophils % 0.5 % (0-1.3); Eosinophils % 2.1 % (0-4.4); Hematocrit 35.7 % (36.0-45.0); Lymphocytes % 20.6 % (15.3-44.8); MCH 29.2 pg (27.0-35.0); MCV 87.6 fL (80-100); MPV 8.3 fL (7.6-11.3); Monocytes % 6.7 % (3.3-12.3); RBC Red Blood Cell Count 4.08 M/uL (3.86-4.86)
[2018-03-19] LABS: BUN Blood Urea Nitrogen 9 mg/dL (7-18); Bicarbonate 28 mmol/L (21-32); Glucose Level 116 mg/dL (74-106); Potassium 4.4 mmol/L (3.5-5.1); Sodium Level 142 mmol/L (136-145); Troponin (Emerg Dept Use Only) < 0.02 ng/mL (0.0-0.045)
[2018-03-19 01:58] LABS: Urine Blood TRACE (NEG); Urine Glucose NEGATIVE (NEG); Urine Protein NEGATIVE (NEG); Urine Specific Gravity 1.015 (1.005-1.030)
[2018-03-19 02:14] LABS: Urine Bacteria 20-50 /HPF (<20); Urine Culture Reflex Order REFLEXED; Urine RBC NONE SEEN /HPF (NONE SEEN)
--- NOTE | 2018-03-19 03:00 | EDPHYS ---
Physician Documentation [facility] Name: Zulay Sloan Age: 42 yrs Sex: Female : 1975 Arrival Date: 03/18/2018 Time: 22:58 Bed 8 Private MD: ED Physician Maico Moseley HPI: 03/18 23:37 This 42 yrs old Female presents to ER via EMS with complaints of syncope. rn 23:37 The patient has experienced syncope. Onset: The symptoms/episode began/occurred just rn prior to arrival. Duration: This was a single episode. Context: the episode(s) was witnessed, by a significant other, occurred at home, occurred while the patient was standing, Just prior to the episode the patient experienced lightheadedness. Associated injury: The patient did not suffer any apparent associated injury. Associated signs and symptoms: Pertinent positives: dizziness, lightheadedness. Current symptoms: fatigue. The patient has experienced similar episodes in the past. 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 Took 2 muscle relaxers. Was standing in shower, felt lightheaded, called , caught her, no trauma, BP was 90s systolic for EMS, given fluids, BP now in 130s. Reports low blood pressure happens often but has never passed out from it like this.. THREAD SPINNER: 23:30 LMP 03/19/2018 jb4 Historical: - Allergies: 23:11 PENICILLINS; jb4 23:11 Floxin; jb4 23:11 Erythromycin; jb4 23:11 Sulfa (Sulfonamide Antibiotics); jb4 23:11 Demerol; jb4 23:11 Codeine; jb4 23:11 Azithromycin; jb4 23:11 Augmentin; jb4 23:11 Zyrtec; jb4 23:11 SHELLFISH; jb4 23:11 Iodine; jb4 23:11 Latex, Natural Rubber; jb4 - Home Meds: 23:11 Clonazepam Oral [Active]; Docusate Calcium Oral [Active]; pantoprazole oral oral jb4 [Active]; Methocarbamol Oral [Active]; - PMHx: 23:11 Anxiety; Asthma; Depression; Dysautonomia; SVT; Uterine lining Polyps; jb4 - PSHx: 23:11 Angiogram 10/27/2015; Throat Dilation; Heart Monitor; D \T\ C; Cervical fusion; right jb4 knee; Lumbar fusion; ; - Immunization history:: Adult Immunizations up to date, Flu vaccine status is unknown. - Social history:: Smoking status: unknown. - Ebola Screening: : No symptoms or risks identified at this time. - Family history:: not pertinent. - Hospitalizations: : Patient was recently seen at. ROS: 23:37 Constitutional: Negative for fever, chills, and weight loss, Eyes: Negative for injury, rn pain, redness, and discharge, Neck: Negative for injury, and swelling, Cardiovascular: Negative for chest pain, palpitations, and edema, Respiratory: Negative for shortness of breath, cough, wheezing, and pleuritic chest pain, Abdomen/GI: Negative for abdominal pain, nausea, vomiting, diarrhea, and constipation, MS/Extremity: Negative for injury and deformity, Skin: Negative for injury, rash, and discoloration, Neuro: Negative for headache, numbness, tingling, and seizure. Exam: 23:37 Constitutional: This is a well developed, well nourished patient who is somnolent, rn appears sedated/under influence Head/Face: Normocephalic, atraumatic. Eyes: Pupils equal round and reactive to light, extra-ocular motions intact. Lids and lashes normal. Conjunctiva and sclera are non-icteric and not injected. Cornea within normal limits. Periorbital areas with no swelling, redness, or edema. ENT: MMM, no stridor Neck: Trachea midline, no thyromegaly or masses palpated, and no cervical lymphadenopathy. In ccollar, no midline tenderness. + anterior cervical surgical wound c/d/i Cardiovascular: Regular rate and rhythm with a normal S1 and S2. No gallops, murmurs, or rubs. Normal PMI, no JVD. No pulse deficits. Respiratory: Lungs have equal breath sounds bilaterally, clear to auscultation and percussion. No rales, rhonchi or wheezes noted. No increased work of breathing, no retractions or nasal flaring. Abdomen/GI: Soft, non-tender, with normal bowel sounds. No distension or tympany. No guarding or rebound. No evidence of tenderness throughout. MS/ Extremity: Pulses equal, no cyanosis. Neurovascular intact. Full, normal range of motion. Equal circumference. Neuro: GCS 15, oriented to person, place, time, and situation. Cranial nerves II-XII grossly intact. Motor strength 4/5 in all extremities. Sensory grossly intact. Vital Signs: 23:11 BP 136 / 85; Pulse 84; Resp 18; Temp 98.2; Pulse Ox 100% on R/A; Weight 83.91 kg; jb4 Height 5 ft. 8 in. (172.72 cm); 03/19 00:00 BP 127 / 79; Pulse 87; Resp 18; Pulse Ox 100% on R/A; jb4 01:00 BP 114 / 71; Pulse 84; Resp 16; Pulse Ox 100% on R/A; jb4 02:40 BP 125 / 81; Pulse 89; Resp 18; Pulse Ox 98% on R/A; jb4 03:00 BP 118 / 85; Pulse 70; Resp 18; Pulse Ox 100% on R/A; jb4 03/18 23:11 Body Mass Index 28.13 (83.91 kg, 172.72 cm) jb4 MDM: 03/18 22:59 Patient medically screened. rn 03/19 02:58 Differential Diagnosis: idiopathic syncope, vasovagal episode, dysautonomia, rn dehydration. Data reviewed: vital signs, nurses notes, lab test result(s), EKG, radiologic studies, CT scan, and as a result, I will discharge patient. Counseling: I had a detailed discussion with the patient and/or guardian regarding: the historical points, exam findings, and any diagnostic results supporting the discharge/admit diagnosis, lab results, radiology results, the need for outpatient follow up, to return to the emergency department if symptoms worsen or persist or if there are any questions or concerns that arise at home. Response to treatment: the patient's symptoms have markedly improved after treatment, the patient's condition has returned to base line, the patient is now symptom free, patient is well hydrated. and as a result, I will discharge patient. Special discussion: I discussed with the patient/guardian in detail that at this point there is no indication for admission to the hospital. It is understood, however, that if the symptoms persist or worsen the patient needs to return immediately for re-evaluation. Based on the history and exam findings, there is no indication for further emergent testing or inpatient evaluation. I discussed with the patient/guardian the need to see the industrial health and safety professor for further evaluation of the symptoms. I discussed with the patient/guardian the need to see the neurologist for further evaluation of the symptoms. I discussed with the patient/guardian the need to see the primary care provider for further evaluation of the symptoms. 03/18 23:00 Order name: CBC with Diff; Complete Time: 00:29 rn 03/18 23:00 Order name: Basic Metabolic Panel; Complete Time: 00:29 rn 03/18 23:00 Order name: Urine Microscopic Only; Complete Time: 02:16 rn 03/18 23:00 Order name: Troponin (emerg Dept Use Only); Complete Time: 00: rn 03/19 01:33 Order name: Test, Serum; Complete Time: 02:16 cc 03/19 01:47 Order name: Urine Dipstick--Ancillary (enter results); Complete Time: 02:16 mw2 03/18 23:00 Order name: CT Head C Spine rn 03/18 23:00 Order name: IV Start; Complete Time: 23:02 rn 03/18 23:00 Order name: Urine Dipstick-Ancillary (obtain specimen); Complete Time: 01:44 rn 03/18 23:00 Order name: EKG; Complete Time: 23:01 rn 03/18 23:00 Order name: EKG - Nurse/Tech; Complete Time: 23:29 rn 03/19 01:47 Order name: Urine --Ancillary (enter results); Complete Time: 02:16 mw2 03/19 02:15 Order name: Urine Culture EDMS Administered Medications: 03/18 23:24 Drug: NS 0.9% 1000 ml Route: IV; Rate: 1000 ml; Site: right antecubital; jb4 03/19 00:30 Follow up: Response: No adverse reaction; IV Status: Completed infusion jb4 Disposition: 03/19/18 03:00 Discharged to Home. Impression: Syncope and collapse, Dehydration, Dysautonomia. - Condition is Stable. - Discharge Instructions: Constipation, Adult, Dehydration, Adult, Syncope. - Medication Reconciliation Form, Thank You Letter, Antibiotic Education, Prescription Opioid Use form. - Follow up: Private Physician; When: As needed; Reason: Recheck today's complaints, Re-evaluation by your physician. - Problem is new. - Symptoms have improved. Signatures: Dispatcher [employer] EDMaico Balderas MD MD rn Bryson, James, RN RN jb4 Corrections: (The following items were deleted from the chart) 03:23 03:00 03/19/2018 03:00 Discharged to Home. Impression: Syncope and collapse; jb4 Dehydration; Dysautonomia. Condition is Stable. Forms are Medication Reconciliation Form, Thank You Letter, Antibiotic Education, Prescription Opioid Use. Follow up: Private Physician; When: As needed; Reason: Recheck today's complaints, Re-evaluation by your physician. Problem is new. Symptoms have improved. rn
--- NOTE | 2018-03-19 03:00 | ER ---
Nurse's Notes [facility] Name: Zulay Sloan Age: 42 yrs Sex: Female : 1975 Arrival Date: 03/18/2018 Time: 22:58 Bed 8 Private MD: Diagnosis: Syncope and collapse;Dehydration;Dysautonomia Presentation: 03/18 23:02 Presenting complaint: EMS states: Pt was hypotensive upon arrival. reports jb4 catching her while she was in the shower, pt did not hit her head. Pt reports that she was in the shower and felt weird, called for her whom upon arrival caught her as she fell. Transition of care: patient was not received from another setting of care. Onset of symptoms was March 18, 2018. Risk Assessment: Do you want to hurt yourself or someone else? Patient reports no desire to harm self or others. Initial Sepsis Screen: Does the patient meet any 2 criteria? No. Patient's initial sepsis screen is negative. Does the patient have a suspected source of infection? No. Patient's initial sepsis screen is negative. Care prior to arrival: None. 23:02 Method Of Arrival: EMS: [facility] jb4 23:02 Acuity: PAULIE 3 jb4 Triage Assessment: 23:11 General: Appears in no apparent distress. uncomfortable, Behavior is calm, cooperative. jb4 Pain: Denies pain. EENT: No signs and/or symptoms were reported regarding the EENT system. Neuro: Level of Consciousness is awake, alert, obeys commands, Oriented to person, place, time, situation. Cardiovascular: Heart tones S1 S2 present Patient's skin is warm and dry. Respiratory: Airway is patent Respiratory effort is even, unlabored, Respiratory pattern is regular, symmetrical. GI: No signs and/or symptoms were reported involving the gastrointestinal system. : No signs and/or symptoms were reported regarding the genitourinary system. Derm: Skin is intact, Skin is pink, warm \T\ dry. Musculoskeletal: Circulation, motion, and sensation intact. Reports weakness in Generalized. HIDE WORKER: 23:30 LMP 03/19/2018 jb4 Historical: - Allergies: 23:11 PENICILLINS; jb4 23:11 Floxin; jb4 23:11 Erythromycin; jb4 23:11 Sulfa (Sulfonamide Antibiotics); jb4 23:11 Demerol; jb4 23:11 Codeine; jb4 23:11 Azithromycin; jb4 23:11 Augmentin; jb4 23:11 Zyrtec; jb4 23:11 SHELLFISH; jb4 23:11 Iodine; jb4 23:11 Latex, Natural Rubber; jb4 - Home Meds: 23:11 Clonazepam Oral [Active]; Docusate Calcium Oral [Active]; pantoprazole oral oral jb4 [Active]; Methocarbamol Oral [Active]; - PMHx: 23:11 Anxiety; Asthma; Depression; Dysautonomia; SVT; Uterine lining Polyps; jb4 - PSHx: 23:11 Angiogram 10/27/2015; Throat Dilation; Heart Monitor; D \T\ C; Cervical fusion; right jb4 knee; Lumbar fusion; ; - Immunization history:: Adult Immunizations up to date, Flu vaccine status is unknown. - Social history:: Smoking status: unknown. - Ebola Screening: : No symptoms or risks identified at this time. - Family history:: not pertinent. - Hospitalizations: : Patient was recently seen at. Screenin:17 Abuse screen: Denies threats or abuse. Nutritional screening: No deficits noted. jb4 Tuberculosis screening: No symptoms or risk factors identified. Fall Risk Fall in past 12 months (25 points). Secondary diagnosis (15 points) IV access (20 points). Assessment: 23:17 General: see triage assessment. jb4 03/19 00:00 Reassessment: Patient appears in no apparent distress at this time. Patient and/or jb4 family updated on plan of care and expected duration. Pain level reassessed. Patient is alert, oriented x 3, equal unlabored respirations, skin warm/dry/pink. 01:07 Reassessment: Patient appears in no apparent distress at this time. Patient and/or jb4 family updated on plan of care and expected duration. Pain level reassessed. Patient is alert, oriented x 3, equal unlabored respirations, skin warm/dry/pink. 02:40 Reassessment: Patient appears in no apparent distress at this time. Patient and/or jb4 family updated on plan of care and expected duration. Pain level reassessed. Patient is alert, oriented x 3, equal unlabored respirations, skin warm/dry/pink. 03:20 Reassessment: Patient appears in no apparent distress at this time. Patient and/or jb4 family updated on plan of care and expected duration. Pain level reassessed. Patient is alert, oriented x 3, equal unlabored respirations, skin warm/dry/pink. Discussed D/c, F/u with pt and pt's , denies question or concerns at this time. Vital Signs: 03/18 23:11 BP 136 / 85; Pulse 84; Resp 18; Temp 98.2; Pulse Ox 100% on R/A; Weight 83.91 kg; jb4 Height 5 ft. 8 in. (172.72 cm); 03/19 00:00 BP 127 / 79; Pulse 87; Resp 18; Pulse Ox 100% on R/A; jb4 01:00 BP 114 / 71; Pulse 84; Resp 16; Pulse Ox 100% on R/A; jb4 02:40 BP 125 / 81; Pulse 89; Resp 18; Pulse Ox 98% on R/A; jb4 03:00 BP 118 / 85; Pulse 70; Resp 18; Pulse Ox 100% on R/A; jb4 03/18 23:11 Body Mass Index 28.13 (83.91 kg, 172.72 cm) jb4 ED Course: 03/18 22:58 Patient arrived in ED. ak1 22:59 Maico Moseley MD is Attending Physician. rn 23:04 Triage completed. jb4 23:11 Arm band placed on right wrist. jb4 23:19 Adam Jordan, RN is Primary Nurse. jb4 23:19 Patient has correct armband on for positive identification. Placed in gown. Bed in low jb4 position. Call light in reach. Side rails up X2. manager monitoring on. Pulse ox on. NIBP on. 23:25 Initial lab(s) drawn, by me, sent to lab. cc 23:29 EKG done, by ED staff, reviewed by Maico Moseley MD. cc 03/19 02:[address] via stretcher. kw1 02:14 CT Head C Spine In Process Unspecified. EDMS 02:19 CT completed. Patient tolerated procedure well. Patient moved back from CT. kw1 03:00 No provider procedures requiring assistance completed. IV discontinued, intact, jb4 bleeding controlled. Administered Medications: 03/18 23:24 Drug: NS 0.9% 1000 ml Route: IV; Rate: 1000 ml; Site: right antecubital; jb4 03/19 00:30 Follow up: Response: No adverse reaction; IV Status: Completed infusion jb4 Outcome: 03:00 Discharge ordered by . rn 03:00 Discharged to home ambulatory. jb4 03:00 Condition: stable 03:00 Discharge instructions given to patient, Instructed on discharge instructions, follow up and referral plans. Demonstrated understanding of instructions, follow-up care. 03:23 Patient left the ED. jb4 Signatures: Dispatcher [employer] EDMS Maico Moseley MD MD rn Jacquelyn Cardenas Amber RN RN ak1 Adam Jordan RN RN jb4 Linda Dockery kw1
[2018-03-19 03:42] VITALS: TEMP 98.2
[2018-03-19 03:46] VITALS: BP 118/85; O2SAT 100
--- NOTE | 2018-03-19 08:35 | RAD REPORT ---
EXAM DESCRIPTION: CT - [id number] - 03/19/2018 7:22 am CLINICAL HISTORY: Fall, syncope, hypotensive COMPARISON: None. TECHNIQUE: Axial 5 mm thick images of the head were obtained. Axial 2 mm thick images of the cervic al spine were obtained with sagittal and coronal reconstruction images generated and reviewed. All CT scans are performed using dose optimization technique as appropriate and may include automated exposure control or mA/KV adjustment according to patient size. FINDINGS: No intracranial hemorrhage, mass, edema or acute intracranial finding. No suspicion for acute infarct ion. No extra-axial fluid collections. Mastoid air cells and paranasal sinuses are clear. No globe or orbit abnormality seen. Cervical bodies are normal in height. There is slight reversal of the usual cervical lordosis at C3-4 linear defect in the C5 body from prior hardware placement. There is graft material in the C5-6 disc space appearing well healed. Hardware is in place fusing C6-7. There is graft material in the disc s pace. Mild disc space narrowing at C3-4. No fracture or acute bony abnormality. Central canal detail is inherently limited. No paraspinal mass or hematoma. IMPRESSION: Negative CT head examination for acute or significant finding. Negative CT cervical spine examination for acute or significant finding. Degenerative and postsurgic al changes are present without acute component.
--- NOTE | 2018-03-19 09:02 | EKG ---
Test Date: 2018-03-18 Test Time: 23:22:29 Director Of Cloud Services: ARMANDO MEASUREMENT RESULTS: Intervals: Rate: 84 SC: 154 QRSD: 74 QT: 376 QTc: 444 [place]: P: 53 SC: 154 QRS: 51 T: 49 INTERPRETIVE STATEMENTS: Normal sinus rhythm Normal ECG No previous ECG available for comparison Electronically Signed On 03-19-18 09:01:26 CDT by Medhat Ortiz
== END 2018-03-19 03:23 | disposition home or self-care (01) ==
LOC: ER 22:56
DX: E86.0 Dehydration (principal); G90.1 Familial dysautonomia [Riley-Day]; F32.9 Major depressive disorder, single episode, unspecified; F41.9 Anxiety disorder, unspecified; J45.909 Unspecified asthma, uncomplicated; Z88.0 Allergy status to penicillin; Z88.2 Allergy status to sulfonamides; Z88.3 Allergy status to other anti-infective agents; Z88.5 Allergy status to narcotic agent; Z91.013 Allergy to seafood; Z91.040 Latex allergy status; Z91.048 Other nonmedicinal substance allergy status
CPT/HCPCS: 36415; 70450; 72125; 80048; 81003; 81015; 81025; 84484; 84703; 85025; 87077; 87086; 87088; 87186; 93005; 96360; 99285; J7030